=== PATIENT | female | born 1945 | race Caucasian/White ===

== ENCOUNTER 2016-08-10 18:44 | Emergency (ER) | payer OTHER, MEDICARE ==
[~2016-08-10] VITALS: Ht 167.6 cm; Wt 56.7 kg
--- NOTE | 2016-08-10 19:04 | NUR ---
71 Y/O FEMALE BIBA FROM HOME FOR DIFFICULTY BREATHING. PT HAS HX OF COPD AND PER SPOUSE PT WAS NOT SICK BUT FOR THE PAST 2 HRS, PT STARTED TO LABOR AND JUST DETERIORATED TO NOT BEEN ABLE TO BREATH. PT ARRIVES A/O AND NOTED WITH DOUNEB TX AND USE OF ACCESSORY MUSCLES. PT ALSO NOTED TO HAVE VERY COLD HANDS AND BLUISH RED IN COLOR AND PT STS SHE HAS POOR CIRCULATION. PER PT ALSO TOOK A TYLENOL AT 1700 AND THEN HAD A STIFF NECK AND SITUATION GOT WORSE VERY QUICKLY. PT PLACED ON MONITOR AND OXYGEN 2L AND SATURATING AT 91%. AAKASH TODD AT BEDSIDE TO JOSEPHINE PT
[2016-08-10] MEDS ORDERED: METOPROLOL SUC100 M2 PO (19:09)
[2016-08-10] MEDS ORDERED: VERAPAMIL HCL360 M1 PO (19:09)
[2016-08-10] MEDS ORDERED: VALSARTAN-HCTZ1 EAC3 PO (19:09)
[2016-08-10] MEDS ORDERED: WARFARIN SODIUM5 M1 PO (19:09)
--- NOTE | 2016-08-10 19:29 | NUR ---
RESP AT BEDSIDE FOR DUO NEB. MEDICATED WITH SOLUMEDROL PER ORDER (SEE MAR). PORTABLE CXRAY BEING DONE AT BEDSIDE
--- NOTE | 2016-08-10 19:55 | NUR ---
THIS RN IN ROOM TO ATTEMPT BLOOD DRAW. PT PALE, BECOMING INCREASINGLY LETHARGIC. HR DROPPING FROM 60'S TO 30'S. CALLED FOR AAKASH TODD. PA IN ROOM. SEE BELOW NOTES FOR FURTHER DETAILS.
--- NOTE | 2016-08-10 20:05 | NUR ---
ARRIVED WITH CPR IN PROGRESS. AMBU VENTILATION IN PROGRESS. PT INTUBATED WITH #7ETT, GOOD BILAT B.S AUSCULTATED & VERIFIED WITH ETCO2. CPR CONTINUED MEDS GIVEN ORDERED BY DR ZHOU. PULSES EVENTUALLY RETURNED, BUT WEAK. PLACED ON VENT AC 20-500-100%-5PEEP.
[2016-08-10 20:07] LABS: ABSOLUTE BASOPHIL COUNT 0 /CUMM (0.0-0.2); ABSOLUTE EOSINOPHIL COUNT 0 /CUMM (0.0-0.7); ABSOLUTE GRANULOCYTE CT 21.3 /CUMM (1.4-6.5); ABSOLUTE MONOCYTE COUNT 0.3 /CUMM (0.10-0.60); BASOPHIL % 0 % (0.0-2.0); EOSINOPHIL % 0.2 % (0-5); GRANULOCYTE % 90.2 % (42.2-75.2); HEMATOCRIT 41.5 % (37-47); MEAN CORPUSCULAR HGB 35.1 PG (27.0-31.0); MEAN CORPUSCULAR HGB CONC 32.5 G/DL (33.0-37.0); MEAN CORPUSCULAR VOLUME 107.9 FL (81.0-99.0); MEAN PLATELET VOLUME 8.1 FL (7.4-10.4); PLATELET COUNT 315 /CUMM (130-400); RBC DISTRIBUTION WIDTH 14.3 % (11.5-14.5); RED BLOOD CELL CT 3.84 /CUMM (4.20-5.40); WHITE BLOOD CELL COUNT 23.6 /CUMM (4.8-10.8)
--- NOTE | 2016-08-10 20:20 | RADIOLOGY REPORT ---
EXAMINATION: XR PORTABLE CHEST CLINICAL INFORMATION: Shortness of breath. COMPARISON: Chest x-ray 07/26/2011. TECHNIQUE: Portable AP view of the chest was obtained. FINDINGS: The lungs are hypoinflated. There is minimal dependent bibasilar atelectasis. There is blunting of the bilateral costophrenic angles, suggestive of small bilateral pleural effusions. The cardiac silhouette is enlarged, corresponding to the patient's underlying moderate cardiomegaly. No overt pulmonary edema is identified. No pneumothoraces. No acute osseous abnormality. Soft tissues appear unremarkable. IMPRESSION: Cardiomegaly without overt pulmonary edema. Blunting of the bilateral costophrenic angles likely reflects small bilateral pleural effusions. Minimal dependent bibasilar atelectasis.
--- NOTE | 2016-08-10 20:55 | NUR ---
UNABLE TO PALPATE PULSES, CPR INITIATED AGAIN BY RN, DR ZHOU AT BEDSIDE. PULSES EVENTUALLY RETURNED AGAIN, WEAK. PLACED BACK ON VENTILATOR
--- NOTE | 2016-08-10 21:09 | ED DYSPNEA/ASTHMA COMPLAINT ---
History of Present Illness General Chief Complaint: Dyspnea (COPD, CHF, Other) Stated Complaint: BIBA FOR SHORTNESS OF BREATH Source: patient, family, old records Exam Limitations: no limitations Vital Signs & Intake/Output Vital Signs & Intake/Output Vital Signs Date Time Temp Pulse Resp B/P Pulse O2 O2 Flow FiO2 Ox Delivery Rate 08/101 40/00 08/10 2042 100 08/10 2009 100/60 08/10 1916 97.1 54 22 158/84 93 Nasal 2.0L Cannula 08/10 1909 Nasal 2.0L Cannula 08/10 1904 94 Nasal 2.0L Cannula ED Intake and Output 08/11 0000 08/10 1200 Intake Total Output Total Balance Patient 125 lb Weight Allergies Coded Allergies: azithromycin (Intermediate, DIARRHEA 08/10/16) Reconcile Medications Metoprolol Succinate 100 MG TAB.ER.24H 1 TAB PO DAILY HIGH BLD PRESSURE ( Reported) Valsartan/Hydrochlorothiazide (Valsartan-Hctz 320-25 MG Tab) 320 MG-25 MG TABLET 1 TAB PO DAILY HTN (Reported) Verapamil HCl 360 MG CAP24H.PEL 1 CAP PO DAILY HTN (Reported) Warfarin Sodium 5 MG TABLET 1 TAB PO DAILY AFIB (Reported) Triage Note: 71 Y/O FEMALE BIBA FROM HOME FOR DIFFICULTY BREATHING. PT HAS HX OF COPD AND PER SPOUSE PT WAS NOT SICK BUT FOR THE PAST 2 HRS, PT STARTED TO LABOR AND JUST DETERIORATED TO NOT BEEN ABLE TO BREATH. PT ARRIVES A/O AND NOTED WITH DOUNEB TX AND USE OF ACCESSORY MUSCLES. PT ALSO NOTED TO HAVE VERY COLD HANDS AND BLUISH RED IN COLOR AND PT STS SHE HAS POOR CIRCULATION. PER PT ALSO TOOK A TYLENOL AT 1700 AND THEN HAD A STIFF NECK AND SITUATION GOT WORSE VERY QUICKLY Triage Nurses Notes Reviewed? yes Onset: Abrupt Duration: week(s): (1), constant, getting worse Timing: recent history Severity: moderate, severe HPI: 71-year-old female comes into emergency room with complaints of shortness of breath. Patient reports that for the past week that she's had this nonproductive cough. Denies any chest pain. Denies any lightheaded dizziness or syncopal episodes. Patient has a history of hypertension and a history of COPD. Patient reports that today this afternoon she got very short of breath. Patient still was not having any chest pain palpitations or syncopal episodes. Patient came in by ambulance for further evaluation. Patient was seen by myself on arrival. Patient's O2 saturation was high 80s according to nurse on arrival. Patient alert and talking. (CHAR TURCIOS) Past History Travel History Traveled to [place] past 21 day No Medical History Any Pertinent Medical History? see below for history Cardiovascular: AFIB, hypertension Respiratory: COPD Pneumonia Vaccine: 05/31/11 Influenza Vaccine: 04/30/11 Surgical History Surgical History: non-contributory Psychosocial History Who do you live with Spouse Services at Home None What is your primary language Slovak Tobacco Use: Current Daily Use Daily Tobacco Use Amount/Type: => 5 Cigarettes daily ETOH Use: occasional use Illicit Drug Use: denies illicit drug use Family History Hx Contributory? No (CHAR TURCIOS) Review of Systems Review of Systems Constitutional: Reports: no symptoms. EENTM: Reports: no symptoms. Respiratory: Reports: see HPI. Cardiovascular: Reports: no symptoms. GI: Reports: no symptoms. Genitourinary: Reports: no symptoms. Musculoskeletal: Reports: no symptoms. Skin: Reports: no symptoms. Neurological/Psychological: Reports: no symptoms. Hematologic/Endocrine: Reports: no symptoms. Immunologic/Allergic: Reports: no symptoms. All Other Systems: Reviewed and Negative (CHAR TURCIOS) Physical Exam Physical Exam General Appearance: alert, awake, mild distress Head: atraumatic, normal appearance Eyes: Bilateral: normal appearance. Ears, Nose, Throat: normal ENT inspection, hearing grossly normal Neck: normal inspection Respiratory: decreased breath sounds, respiratory distress (mild) Cardiovascular: irregularly irregular Gastrointestinal: soft Extremities: Hands bilaterally red, decreased capillary refill, radial pulse 2+ Neurologic/Psych: awake, alert, oriented x 3 Skin: intact, see above Core Measures ACS in differential dx? Yes Severe Sepsis Present: No Septic Shock Present: No (CHAR TURCIOS) Progress Differential Diagnosis: asthma, AMI, bronchitis, costochondritis, CHF, COPD, musculoskeletal pain, pericarditis, pulmonary embolism, pneumonia, pneumothorax, rib fracture, unstable angina Plan of Care: Orders Procedure Date/time Status Admit to inpatient 08/10 2145 Active Patient Data 08/10 2127 Active BLOOD CULTURE 08/10 2105 Active PARTIAL THROMBOPLASTIN TIME 08/10 2105 Complete MIXED VENOUS BLOOD GAS (GEN) 08/10 2104 Complete MAGNESIUM 08/10 2104 Complete LACTIC ACID 08/10 2104 Complete VENTILATOR PARAMETERS 08/10 2029 Complete PROTHROMBIN TIME 08/10 1951 Complete Telemetry/Telecasting Engineer 08/10 1909 Active TROPONIN LEVEL 08/10 1909 Complete COMPREHENSIVE METABOLIC PANEL 08/10 1909 Complete CBC WITHOUT DIFFERENTIAL 08/10 1909 Complete B-TYPE NATRIURETIC PEP (BNP) 08/10 1909 Complete Intake & Output 08/10 1906 Active EKG 08/10 1850 Active Current Medications Sig/Richard Start time Last Medication Dose Stop Time Status Admin Doxapram HCl 20 MG ONE ONE 08/10 1999 CAN (Dopram Inj. 20MG 08/10 2000 Per Ml 20 Ml Megan) Laboratory Tests 08/11/16 0005: Lactic Acid Cancelled 08/10/162108: Lactic Acid 13.4 H, Magnesium 2.7 H, PT 47.5 *H, INR 4.59 *H 08/10/162108: Anion Gap 19 H, Estimated GFR 37 L, BUN/Creatinine Ratio 17.9, Glucose 53 L, Calcium 9.1, Total Bilirubin 1.4 H, AST 1586 H, ALT 901 H, Alkaline Phosphatase 76, Troponin I 76.90 *H, Dpa-F-Miycnayahgc Pept 6530 H, Total Protein 5.3 L, Albumin 2.6 L, Globulin 2.7, Albumin/Globulin Ratio 1.0 L, APTT 37, CBC w Diff MAN DIFF ORDERED, RBC 3.84 L, MCV 107.9 H, MCH 35.1 H, RDW 14.3, MPV 8.1, Gran % 90.2 H, Lymphocytes % 8.3 L, Monocytes % 1.3 L, Eosinophils % 0.2, Basophils % 0 L, Absolute Granulocytes 21.3 H, Segmented Neutrophils 80 H, Band Neutrophils 3, Absolute Lymphocytes 2.0, Lymphocytes 14 L, Monocytes 3, Absolute Monocytes 0.3, Absolute Eosinophils 0, Absolute Basophils 0, Platelet Estimate ADEQUATE, Normochromic RBCs VERIFIED, Poikilocytosis RARE, Stomatocytes RARE, PUBS MCHC 32.5 L 08/10/162099: Bicarbonate Actual 15 L, Mixed VBG pH 6.89 L, Mixed VBG pCO2 82 H, Mixed VBG O2 Saturation 31 L, Carboxyhemoglobin 0.8 L, O2 Concentration % 100%, Respiration Rate 20, O2 Delivery Method ESPRIT VENT, Vent Mode AC, Expiratory Pressure 5, Tidal Volume 500, Phlebotomy Draw Site L FEM Microbiology 08/10 2115 BLOOD: Blood Culture - RECD 08/10 2108 BLOOD: Blood Culture - RECD Diagnostic Imaging: Viewed by Me: Radiology Read. Discussed w/RAD: Radiology Read. Radiology Impression: SERVICE DATE: 08/10/16 EXAM TYPE: RAD - XRY- PORTABLE CHEST XRAY EXAMINATION: XR PORTABLE CHEST CLINICAL INFORMATION: Shortness of breath. COMPARISON: Chest x-ray 07/26/2011. TECHNIQUE: Portable AP view of the chest was obtained. FINDINGS: The lungs are hypoinflated. There is minimal dependent bibasilar atelectasis. There is blunting of the bilateral costophrenic angles, suggestive of small bilateral pleural effusions. The cardiac silhouette is enlarged, corresponding to the patient's underlying moderate cardiomegaly. No overt pulmonary edema is identified. No pneumothoraces. No acute osseous abnormality. Soft tissues appear unremarkable. IMPRESSION: Cardiomegaly without overt pulmonary edema. Blunting of the bilateral costophrenic angles likely reflects small bilateral pleural effusions. Minimal dependent bibasilar atelectasis. DICTATED BY: PREMA BUCK MD DATE/ TIME DICTATED:08/10/162014 VEGETABLE COOK:SHANIKA DATE/TIME TRANSCRIBED: 08/10/162014 Initial ED EKG: see dr knapp note Comments: 08/10/16 Initially upon seeing the patient she was alert and oriented. She had some diminished breath sounds bilaterally and a history of COPD and was O2 saturation in the low 90s on 2 L. However she was alert and oriented and talking in full sentences and did not appear to be in terrible distress at that time. No prior history of heart failure. Patient noted to have some signs of peripheral vascular disease on exam. Respiratory was called for an albuterol treatment and IV steroids were ordered. Patient had a history of COPD. Patient was seen by me immediately upon my arrival around 7 PM. Orders were putting shortly after. Initially upon evaluating the patient her heart rate was in the 50s on the monitor. Patient began to decompensate shortly after initial evaluation and I was notified by the nurse. Patient became bradycardic in the 30s. Repeat EKG was ordered immediately and Dr. Henry was notified and in the room at bedside. Patient was placed on pacer pads. At that point the patient began to decompensate. Cardiology had been paged immediately and Dr. Lujan came shortly down at bedside. From that point on patient was receiving critical care and ended up coding in the room. Patient was intubated and CPR was performed. Dr. Henry and myself were at bedside with the patient continuously. Family was updated with a was going on. Dr. Lujan was at bedside as well. (PEYTON FINN,CHAR) Comments: 08/10/2016 9:30:45 PM I was asked to see this patient as she became bradycardic and lethargic. Despite initial supportive care with oxygen and a nebulizer she became more and more lethargic bradycardic and bradypneic. She was intubated and evaluated by Dr. Lujan in the emergency department. Patient received CPR with chest compressions and doses of epinephrine in order to stabilize cardiac function. Dopamine infusion ordered. 08/10/2016 9:46:51 PM central line has been placed and patient is on maximal infusions of dopamine and norepinephrine. She is on a ventilator with 100% oxygen. She still requires episodes of chest compressions to maintain adequate perfusion. At this point she is attempting spontaneous respirations, but peripheral pulses have been inconsistent. There is red blood refluxing into the endotracheal tube on occasion and I am concerned about a pulmonary hemorrhage given that the patient is on Coumadin and she has required chest compressions. She has periods of improving color followed by periods of peripheral cyanosis. Family has been in the room for a good portion of the resuscitation and had been updated consistently. They understand her grave prognosis. Her case was discussed with Dr. Lujan again who recommended initiation of epinephrine drip given her improvement with intermittent boluses of epinephrine. 08/10/2016 22:35:16 Joan continues to require intermittent rounds of CPR with epinephrine and bicarbonate boluses. Response consists of improvement in color and agonal respirations. Her color will then become cyanotic and she will lose any spontaneous respirations prompting yet another round of CPR. I notified the patient's family that her heart function seems to be deteriorating on bedside ultrasonography despite aggressive resuscitation measures. After a lengthy discussion with the patient's family, her decided to withdraw care. (WINNIE BALL,OCTAVIO Granda) Departure Departure Disposition: Condition: Critical Referrals: LEN REYES MD (PCP/Family) Departure Forms: Customer Survey General Discharge Information (CHAR TURCIOS) Departure Clinical Impression Primary Impression: Bradycardia Secondary Impressions: Cardiac arrest Lactic acidosis Respiratory failure Qualifiers: Chronicity: acute Respiratory failure complication: hypoxia Qualified Code: J96.01 - Acute respiratory failure with hypoxia Troponin level elevated PA/CAR GREASER Co-Sign Statement Statement: ED Attending supervision documentation- [x] I saw and evaluated the patient. I have also reviewed all the pertinent lab results and diagnostic results. I agree with the findings and the plan of care as documented in the PA's/CAR GREASER's documentation. [] I have reviewed the ED Record and agree with the PA's/CAR GREASER's documentation. [] Additions or exceptions (if any) to the PAs/CAR GREASER's note and plan are summarized below: [] (WINNIE BALL,OCTAVIO Granda) Procedures Central Line Central Line Lumen: triple Central Line Procedure: Yes: bentadine prep?, sterile drapes applied, sterile dressing applied. Central Line Position: femoral (R) Anesthesia: local Complications: none Central Line Post Position: sutured, good blood return (CHAR TURCIOS) Critical Care Note Critical Care Note Critical Care Time: 75-104 min (80) (CHAR TURCIOS)
[2016-08-10 21:28] LABS: PTT 37 SEC (25-37)
[2016-08-10 21:36] LABS: PT 47.5 SEC (9.4-12.5)
--- NOTE | 2016-08-10 21:36 | NUR ---
CRITICAL TEST RESULTS [id number] MILES ORTIZ 71 F TESTS AND RESULTS: PT 47.5 INR 4.59 Results received and read back by: CELE PINA Results received date and time: 08/10/162136 The following provider was notified of the results, and read the results back: DR. ZHOU Notified date and time: 08/10/16 at 213
--- NOTE | 2016-08-10 21:48 | NUR ---
CRITICAL TEST RESULTS [id number] MILES ORTIZ 71 F TESTS AND RESULTS: K 6.0, TROPONIN 76.9 Results received and read back by: GIA TOURE Results received date and time: 08/10/162148 The following provider was notified of the results, and read the results back: DR ZHOU Notified date and time: 08/10/16 at 2949
--- NOTE | 2016-08-10 21:49 | NUR ---
CRITICAL TEST RESULTS [id number] MILES ORTIZ 71 F TESTS AND RESULTS: LACTIC ACID 13.4 Results received and read back by: GIA TOURE Results received date and time: 08/10/162149 The following provider was notified of the results, and read the results back: DR ZHOU Notified date and time: 08/10/16 at 2667
[2016-08-10 22:01] VITALS: BP 40/00
--- NOTE | 2016-08-10 22:45 | Cons- Cardiology ---
General Information and HPI Allergies/Medications Allergies: Coded Allergies: azithromycin (Intermediate, DIARRHEA 08/10/16) Home Med List: Metoprolol Succinate 100 MG TAB.ER.24H 1 TAB PO DAILY HIGH BLD PRESSURE ( Reported) Valsartan/Hydrochlorothiazide (Valsartan-Hctz 320-25 MG Tab) 320 MG-25 MG TABLET 1 TAB PO DAILY HTN (Reported) Verapamil HCl 360 MG CAP24H.PEL 1 CAP PO DAILY HTN (Reported) Warfarin Sodium 5 MG TABLET 1 TAB PO DAILY AFIB (Reported) Past History Travel History Traveled to [place] past 21 day No Medical History Cardiovascular: AFIB, hypertension Respiratory: COPD Psychosocial History Services at Home: None ETOH Use: occasional use Illicit Drug Use: denies illicit drug use Assessment/Plan Consult Acknowledgment - Thank you for your consult request.
--- NOTE | 2016-08-10 23:06 | NUR ---
1999: PEA, IV ESTABLISHED #20 RH BY RAYMOND LOREDO. CPR INITIATED. 2004: 1EPI, 1 L OF NS INITIATED. CPR CONTINUED. 2008: 20 ETOMIDATE GIVEN.CPR CONTINUED. 2009: INTUBATED #24, 7. 2010:BP 100/60 MANUALLY. CPR CONTINUED. 2014: 1 EPI. ASYSTOLE. PWC. 2018: CPR CONTINUED. 1 EPI. PWC. ASSISTED RESPIRATIONS. 2019: DOPAMINE DRIP INITIATED. CPR CONTINUED. PEA. 2020:PEA. 2023: ROSC. PULSES RETURNED. 2029: SEN PLACED (NO URINE OUTPUT). GOOD FEMORAL PULSES 2031: 100 SUCCYNOCHOLINE ADMINISTERED. 2054: NOREPINEPHRINE STARTED. 2057: CALCIUM GLUCONATE,GLUCAGON, AND 1 EPI GIVEN. NO PULSE. 2058: NO PULSE. CPR RESUMED. 2099: 1 EPI. PEA. 2100: BICARB GIVEN. PEA. CPR CONTINUED. 2102: FEMORAL PULSES. 2105: NO PULSE. CPR RESUMED. 2106: PEA. 2121: 1G CEFTAZIDINE. 1G VANCO. WEAK PULSES. SOME SPONTANEOUS RESP. 0: LITER #3 NS. 2130: NO PULSE. CPR RESUMED. PEA. 4:1 EPI, 1 BICARB. 2136: COMPLEXES ON MONITOR. SUCTIONED BY RESPIRATORY. 2137: PEA. 2139: 1 EPI. 2140: PEA. COMPRESSIONS HELD. 2143: PT TAKING SPONTANEOUS BREATHS. NO PERIPHERAL PULSES. 2151: PT STOPPED TAKING SPONTANEOUS BREATHS. CPR CONTINUED. PEA. 2152: 1 EPI, CPR CONTINUED. PEA. PWC. 2153: 1 AMP D50, 1 BICARB, CPR MAINTAINED. 2159: ROSC. CARDIAC ACTIVITY NOTED WITH U/S BY . 2208: NO SPONTANEOUS RESP. CPR INITIATED. 2209: 1 EPI. CPR. PEA. 2214: BICARB GIVEN. CPR CONTINUED. 2216: PWC. 1 EPI GIVEN. CPR CONTINUED. 2220: ROSC. PT TAKING AGONAL RESPIRATIONS. 2234: CPR CONTINUED. NO FEMORAL PULSES. 2237: 1 EPI AND 1 BICARB GIVEN. 2246: CPR CONTINUED. 2249: CPR STOPPED. 2251: TIME OF CALLED BY AND MITA CDOY.
--- NOTE | 2016-08-11 00:44 | NUR ---
SPOKE WITH REYES FROM THE ME[facility]S OFFICE *NO CASE* PER DR. MACKEY CASE#[id number]
--- NOTE | 2016-08-11 01:31 | NUR ---
SPOKE WITH [employer]. DECLINING.
== END 2016-08-10 22:51 | disposition expired ==
LOC: CANRESERV → ENRESERVTM → ENRESERVDT → ERH 18:44 → ERHI 21:46 → ERH 22:51 → ERHI 22:51 → CANBEDREQ 08-11 06:56
PROVIDERS: Physician Assistant Medical
DX: I46.9 Cardiac arrest, cause unspecified (principal); J96.90 Respiratory failure, unspecified, unspecified whether with hypoxia or hypercapnia; R00.1 Bradycardia, unspecified; E87.2 Acidosis; R77.8 Other specified abnormalities of plasma proteins; Z72.0 Tobacco use
CPT/HCPCS: ERO; 87040; 93005; 93010; 94799; 96374; 99291; J0610; J0713; J1610; J2930; J3370; J7040; J7060